=== PATIENT | female | born 1995 | race American Indian/Alaskan Native ===

== ENCOUNTER 2021-10-07 11:18 | Emergency (ER) | payer SELFPAY ==
[2021-10-07 11:24] VITALS: BP 142/86
[2021-10-07] MEDS ORDERED: SODIUM CHLORIDE 0.9% 1000 ML 1,000 ML IV ONE (11:25)
[2021-10-07] MEDS ORDERED: METOCLOPRAMIDE 10 MG/2 ML INJ IV ONE (11:25)
--- NOTE | 2021-10-07 11:31 | Emergency Department Report ---
ED General Adult HPI - General Chief complaint: Nausea/Vomiting/Diarrhea Stated complaint: NAUSEA VOMITING Time Seen by Provider: 10/07/21 11:24 Source: EMS Mode of arrival: Ambulatory Limitations: No Limitations - History of Present Illness Initial comments: Patient presents by ambulance secondary to nausea and vomiting. She has had an upset stomach for about 2 weeks now. Over the last day she has had ongoing vomiting cannot keep anything down. She feels dehydrated. There is diarrhea. There is some lower abdominal cramping. She has not had fevers or chills. She has not had cough or congestion. There is no history of recent travel or traum a. There have been no sick contacts. She states that she is . Her last menstrual cycle was in July. She is a . She has not had care up to this point. Severity scale (0 -10): 0 - Related Data Previous Rx's Medication Instructions Recorded Last Taken Type Metoclopramide [Reglan] 10 mg PO ACHS PRN #30 tablet 10/07/21 Unknown Rx Allergies Allergy/AdvReac Type Severity Reaction Status Date / Time No Known Allergies Allergy Verified 10/07/21 11:24 ED Review of Systems ROS: Stated complaint: NAUSEA VOMITING Other details as noted in HPI Comment: All other systems reviewed and negative Constitutional: denies: fever Eyes: denies: eye pain ENT: denies: throat pain Respiratory: denies: cough Cardiovascular: denies: chest pain Endocrine: denies: unexplained weight loss Gastrointestinal: as per HPI Genitourinary: denies: dysuria Musculoskeletal: denies: back pain Skin: denies: rash Neurological: denies: headache Hematological/Lymphatic: denies: easy bruising ED Past Medical Hx - Past Medical History Previous Medical History?: No - Family History Family history: no significant - Medications Home Medications: Home Medications Medication Instructions Recorded Confirmed Last Taken Type Metoclopramide [Reglan] 10 mg PO ACHS PRN #30 tablet 10/07/21 Unknown Rx ED Physical Exam - General Limitations: No Limitations, Other (Pulse ox noted and normal) General appearance: alert, in no apparent distress, obese, other (Nontoxic) - Head Head exam: Present: atraumatic, normocephalic - Eye Eye exam: Present: normal appearance, PERRL, EOMI. Absent: scleral icterus - ENT ENT exam: Present: mucous membranes dry, normal external ear exam - Neck Neck exam: Present: normal inspection. Absent: meningismus - Respiratory Respiratory exam: Present: normal lung sounds bilaterally. Absent: respiratory distress - Cardiovascular Cardiovascular Exam: Present: regular rate, normal rhythm - GI/Abdominal GI/Abdominal exam: Present: soft. Absent: distended, tenderness - Extremities Exam Extremities exam: Present: normal capillary refill - Back Exam Back exam: Absent: CVA tenderness (R), CVA tenderness (L) - Neurological Exam Neurological exam: Present: alert, oriented X3, CN II-XII intact, normal gait. Absent: motor sensory deficit - Psychiatric Psychiatric exam: Present: normal affect, normal mood - Skin Skin exam: Present: warm, dry ED Course Vital Signs 10/07/21 11:23 Temperature 98.7 F Pulse Rate 93 H Respiratory 16 Rate Blood Pressure 142/86 [Right] O2 Sat by Pulse 99 Oximetry - Reevaluation(s) Reevaluation #1: 10/07/21 11:28 EMS was met upon arrival. Labs and ultrasound ordered. Old records noted. Reevaluation #2: 10/07/21 12:38 Further IV fluids have been ordered. Oral potassium was ordered. Reevaluation #3: 10/07/21 13:10 Ultrasound and labs have been noted. UA is pending. ED Medical Decision Making - Lab Data Result diagrams: 10/07/21 11:37 10/07/21 11:37 - Medical Decision Making Patient presents with nausea and upset stomach in the setting of . She has an early but it is IUP. There is no ectopic. She clinically does not have evidence of hepatitis or pancreatitis. She does not appear to be septic or toxic. There is no evidence of intractable vomiting. There is no distention or tympany to suggest bowel obstruction. She does not have right lower quadrant tenderness to suggest appendicitis. She will be treated symptomatically and referred to [facility] for follow-up. We will add antibiotics depending on her urine. Critical Care Time: No Critical care attestation.: If time is entered above; I have spent that time in minutes in the direct care of this critically ill patient, excluding procedure time. ED Disposition Clinical Impression: Hypokalemia Nausea & vomiting Qualifiers: Vomiting type: unspecified Qualified Code(s): R11.2 - Nausea with vomiting, unspecified Qualifiers: Weeks of gestation: less than 8 weeks Qualified Code(s): Z3A.01 - Less than 8 weeks gestation of Disposition: 01 HOME / SELF CARE / HOMELESS Is pt being admited?: No Condition: Stable Instructions: Before Baby Comes Home, How a Baby Grows During , Eating Plan for Women, Nausea and Vomiting, Adult, Potassium Content of Foods, First Trimester of Additional Instructions: Have a bland diet. Drink water. Return for problems. Follow-up with your regu lar doctor or the referral physician as directed. Prescriptions: Metoclopramide [Reglan] 10 mg PO ACHS PRN #30 tablet PRN Reason: Nausea Referrals: PRIMARY CARE, [Referring] - 3-5 Days ELKE JUÁREZ MD [Staff Physician] - 3-5 Days JAE SAUL MD [Staff Physician] - 3-5 Days
[2021-10-07 12:02] LABS: Hematocrit 35.9 % (30.3-42.9); Hemoglobin 12.2 gm/dl (10.1-14.3); Mean Corpuscular HGB Conc 34 % (30-34); Mean Corpuscular Volume 76 fl (79-97); Platelet Count 417 K/mm3 (140-440); Red Blood Count 4.75 M/mm3 (3.65-5.03); Red Cell Distribution Width 17.3 % (13.2-15.2)
[2021-10-07 12:22] LABS: Alanine Aminotransferase 37 units/L (7-56); Albumin 4.2 g/dL (3.9-5); Blood Urea Nitrogen 8 mg/dL (7-17); Calcium 9.5 mg/dL (8.4-10.2); Hemolysis Index 11
[2021-10-07 12:24] LABS: BUN/Creatinine Ratio 16
[2021-10-07] MEDS ORDERED: LACTATED RINGERS 1,000 ML IV ONE (12:38)
[2021-10-07] MEDS ORDERED: POTASSIUM CHLORIDE ER 20 MEQ TAB PO ONE (12:38)
--- NOTE | 2021-10-07 13:07 | Ultrasound Report ---
ULTRASOUND OBSTETRIC INDICATION: lower abd pain. TECHNIQUE: Transabdominal and Transvaginal. COMPARISON: None available. FINDINGS: GESTATIONAL SAC: Well-defined oval shape and intrauterine in location. YOLK SAC: No significant abnormality. EMBRYO/FETUS: No significant abnormality. - [place]-Rump Length = 0.58 cm = 6 weeks, 3 day(s). - Heart Rate = 112 beats per minute. ADNEXA: No significant abnormality. FREE FLUID: None. ADDITIONAL FINDINGS: None. IMPRESSION: 1. Single, living intrauterine with estimated sonographic age of 6 weeks, 3 day(s). 2. No acute findings. Signer Name: Riley Rock MD Signed: 10/07/2021 1:02 PM Workstation Name: [id number]
--- NOTE | 2021-10-07 13:08 | Ultrasound Report ---
ULTRASOUND OBSTETRIC INDICATION: lower abd pain. TECHNIQUE: Transabdominal and Transvaginal. COMPARISON: None available. FINDINGS: GESTATIONAL SAC: Well-defined oval shape and intrauterine in location. YOLK SAC: No significant abnormality. EMBRYO/FETUS: No significant abnormality. - [place]-Rump Length = 0.58 cm = 6 weeks, 3 day(s). - Heart Rate = 112 beats per minute. ADNEXA: No significant abnormality. FREE FLUID: None. ADDITIONAL FINDINGS: None. IMPRESSION: 1. Single, living intrauterine with estimated sonographic age of 6 weeks, 3 day(s). 2. No acute findings. Signer Name: Riley Rock MD Signed: 10/07/2021 1:02 PM Workstation Name: [id number]
[2021-10-07] MEDS ORDERED: ONDANSETRON 4 MG/2 ML INJ IV ONE (14:06)
[2021-10-07 14:34] LABS: Bilirubin,Urine Negative (Negative); Blood,Urine Negative (Negative); Color,Urine Colorless (Yellow)
[2021-10-07 14:46] LABS: Mucus,Urine 1+ /HPF; RBC,Urine < 1.0 /HPF (0.0-6.0)
== END 2021-10-07 15:30 | disposition home or self-care (01) ==
LOC: EDSEX → ED 11:18
DX: O21.9 Vomiting of pregnancy, unspecified (principal); E87.6 Hypokalemia; Z3A.01 Less than 8 weeks gestation of pregnancy
CPT/HCPCS: 36415; 76801; 76817; 80053; 81001; 84702; 85027; 96361; 96374; 96375; 99284; J2405; J2765; J7030; J7120; Q0162

== ENCOUNTER 2021-12-03 05:15 | Emergency (ER) | payer OTHER ==
[2021-12-03] MEDS ORDERED: SODIUM CHLORIDE 0.9% 1000 ML 1,000 ML IV ONE (05:42)
[2021-12-03] MEDS ORDERED: ACETAMINOPHEN 500 MG TAB PO ONE (05:43)
[2021-12-03] MEDS ORDERED: ONDANSETRON 4 MG/2 ML INJ IV ONE ×2 (05:43→14:04)
[2021-12-03 05:54] LABS: Basophils % (Auto) 0.5 % (0.0-1.8); Eosinophils % (Auto) 0.1 % (0.0-4.3); Hematocrit 34.5 % (30.3-42.9); Hemoglobin 11.5 gm/dl (10.1-14.3); Lymphocytes # (Auto) 1.8 K/mm3 (1.2-5.4); Lymphocytes % (Auto) 17.5 % (13.4-35.0); Mean Corpuscular HGB Conc 33 % (30-34); Mean Corpuscular Volume 79 fl (79-97); Monocytes # (Auto) 0.8 K/mm3 (0.0-0.8); Monocytes % (Auto) 7.7 % (0.0-7.3); Platelet Count 347 K/mm3 (140-440); Red Blood Count 4.38 M/mm3 (3.65-5.03); Red Cell Distribution Width 18.2 % (13.2-15.2)
[2021-12-03 06:02] LABS: Bilirubin,Urine NEG (Negative); Blood,Urine NEG (Negative); Color,Urine Amber (Yellow)
[2021-12-03 06:04] LABS: RBC,Urine < 1.0 /HPF (0.0-6.0); WBC,Urine < 1.0 /HPF (0.0-6.0)
[2021-12-03 06:17] LABS: Alanine Aminotransferase 212 units/L (7-56); Blood Urea Nitrogen 5 mg/dL (7-17); Calcium 9.2 mg/dL (8.4-10.2); Hemolysis Index 2
[2021-12-03 06:18] LABS: BUN/Creatinine Ratio 10
[2021-12-03 08:32] LABS: HCG,Quantitative 26945 mIU/mL (0-4)
--- NOTE | 2021-12-03 08:49 | Ultrasound Report ---
ULTRASOUND ABDOMEN, COMPLETE INDICATION: elevated LFT. COMPARISON: No relevant prior imaging study available. FINDINGS: Pancreas: The visualized proximal pancreas is unremarkable. The tail is partially obscured. Abdominal Aorta: No significant abnormality. IVC: No significant abnormality. Liver: The liver measures 15.8 cm in length. No significant abnormality. Normal hepatopedal blood fl ow in the main portal vein. Gallbladder: There is a large amount of sludge throughout the gallbladder. No evidence for shadowing stones, abnormal gallbladder wall thickening or pericholecystic fluid.. Bile ducts: The intrahepatic biliary ducts are slightly prominent but the common bile duct is nondila kalina. Common bile duct measures 4.4 mm. Kidneys: Right: 11.1 cm in length. No significant abnormality. Left: 9.5 cm in length. No signifi cant abnormality. Spleen: No significant abnormality. 10.3 cm in length. Free fluid: None. Additional Findings: None. IMPRESSION: The gallbladder is filled with sludge. No shadowing gallstones or signs of acute cholecystitis. There may be minimal intrahepatic biliary duct prominence but no evidence for dilated common bile duct whi ch measures 4.4 mm. Signer Name: Sammy Vasquez Jr, MD Signed: 12/03/2021 8:44 AM Workstation Name: [id number]
--- NOTE | 2021-12-03 08:52 | Ultrasound Report ---
ULTRASOUND OBSTETRIC COMPLETE INDICATION / CLINICAL INFORMATION: preg, abdominal pain. Clinical Gestational Age (GA) in weeks.days: 13.3 TECHNIQUE: Transabdominal. COMPARISON: 10/07/2021 FINDINGS: NUMBER: Single PRESENTATION: breech PLACENTA: Posterior, grade 0 and free of the os. MATERNAL ADNEXA: No significant abnormality. AMNIOTIC FLUID VOLUME: Within normal limits subjectively. MANOJ was not measured. ANATOMY: anatomical survey was not performed. MEASUREMENTS: - Biparietal Diameter = 3.0 cm = 15.3 weeks.days - Head Circumference = 10.7 cm = 15.1 weeks.days - Abdominal Circumference = 9.7 cm = 15.6 weeks.days - Femur Length = 2.0 cm = 16.0 weeks.days - Estimated Weight (in grams, if calculated): Not calculated - Heart Rate (beats per minute): 153 ADDITIONAL FINDINGS: The cervix is closed and measures 2.6 cm in length. PERCENTILE ESTIMATED WEIGHT (if calculated): Not calculated. AVERAGE ULTRASOUND AGE (AUA) in weeks.days = 15.4 IMPRESSION: 1. Single intrauterine with AUA of 15.4 weeks.days 2. No acute abnormality is appreciated. Signer Name: Sammy Vasquez Jr, MD Signed: 12/03/2021 8:47 AM Workstation Name: [id number]
[2021-12-03] MEDS ORDERED: MORPHINE 4 MG/1 ML INJ IV ONE (09:40)
--- NOTE | 2021-12-03 09:45 | Emergency Department Report ---
ED General Adult HPI - General Chief complaint: Abdominal Pain Stated complaint: ABD PAIN Time Seen by Provider: 12/03/21 07:16 Source: patient Mode of arrival: Ambulatory Limitations: No Limitations - History of Present Illness Initial comments: Patient presents with complaints of bilateral lower abdominal pain, sharp, non radiating, "15"/10, not worsened or relieved by anything. Endorses nausea, non bloody, non bilious vomiting. Last BM was 3 days ago and formed but scant. Denies flatulence. Denies dysuria, frequency, urgency, vaginal bleeding, di scharge. Patient is 15 weeks . Severity scale (0 -10): 10 - Related Data Previous Rx's Medication Instructions Recorded Last Taken Type Metoclopramide [Reglan] 10 mg PO ACHS PRN #30 tablet 10/07/21 Unknown Rx Metoclopramide [Reglan TAB] 1 tab PO Q6H PRN #30 tab 12/03/21 Unknown Rx polyethylene glycoL 3350 [Miralax 17 gm PO QDAY PRN 7 Days #7 packet 12/03/21 Unknown Rx 3350] Allergies Allergy/AdvReac Type Severity Reaction Status Date / Time No Known Allergies Allergy Verified 12/03/21 05:34 ED Review of Systems ROS: Stated complaint: ABD PAIN Other details as noted in HPI Comment: All other systems reviewed and negative Constitutional: denies: chills, fever ED Past Medical Hx - Past Medical History Previous Medical History?: No - Surgical History Past Surgical History?: No - Social History Smoking Status: Never Smoker Substance Use Type: None - Medications Home Medications: Home Medications Medication Instructions Recorded Confirmed Last Taken Type Metoclopramide [Reglan] 10 mg PO ACHS PRN #30 tablet 10/07/21 Unknown Rx Metoclopramide [Reglan TAB] 1 tab PO Q6H PRN #30 tab 12/03/21 Unknown Rx polyethylene glycoL 3350 [Miralax 17 gm PO QDAY PRN 7 Days #7 packet 12/03/21 Unknown Rx 3350] ED Physical Exam - General Limitations: No Limitations General appearance: alert, other (writhing in pain) - Head Head exam: Present: atraumatic, normocephalic - Eye Eye exam: Present: PERRL, EOMI - ENT ENT exam: Present: mucous membranes dry, other (airway patent) - Neck Neck exam: Present: other (supple; no JVD) - Respiratory Respiratory exam: Present: other (good air entry, nml I:E, CTAB, no use of ALYSSIA) - Cardiovascular Cardiovascular Exam: Present: regular rate. Absent: rubs, gallop - GI/Abdominal GI/Abdominal exam: Present: other (distended vs obese; tender to palpation diffusely but mainly in RLQ; rebound tenderness present; no involuntary guarding) - Extremities Exam Extremities exam: Present: full ROM. Absent: tenderness - Back Exam Back exam: Present: full ROM. Absent: CVA tenderness (R), CVA tenderness (L) - Neurological Exam Neurological exam: Present: alert, oriented X3, CN II-XII intact. Absent: motor sensory deficit - Skin Skin exam: Present: warm. Absent: rash ED Course Vital Signs 12/03/21 12/03/21 05:31 05:52 Temperature 97.9 F Pulse Rate 114 H Respiratory 20 18 Rate Blood Pressure 117/50 [Left] O2 Sat by Pulse 97 Oximetry ED Medical Decision Making - Lab Data Result diagrams: 12/03/21 05:43 12/03/21 05:43 Laboratory Tests 12/03/21 12/03/21 12/03/21 05:43 05:43 05:43 WBC 10.5 RBC 4.38 Hgb 11.5 Hct 34.5 MCV 79 MCH 26 L MCHC 33 RDW 18.2 H Plt Count 347 Lymph % (Auto) 17.5 [place] % (Auto) 7.7 H Eos % (Auto) 0.1 Baso % (Auto) 0.5 Lymph # (Auto) 1.8 [place] # (Auto) 0.8 Eos # (Auto) 0.0 Baso # (Auto) 0.0 Seg Neutrophils % 74.2 H Seg Neutrophils # 7.8 H PT INR APTT Sodium 139 Potassium 3.4 L Chloride 104.2 Carbon Dioxide 17 L Anion Gap 21 BUN 5 L Creatinine 0.5 L Estimated GFR > 60 BUN/Creatinine Ratio 10 Glucose 94 Calcium 9.2 Total Bilirubin 1.40 H AST 150 H ALT 212 H Alkaline Phosphatase 48 Total Protein 7.0 Albumin 4.0 Albumin/Globulin Ratio 1.3 Lipase 10 L HCG, Quant Urine Color Urine Turbidity Urine pH Ur Specific [place] Urine Protein Urine Glucose (UA) Urine Ketones Urine Blood Urine Nitrite Urine Bilirubin Urine Urobilinogen Ur Leukocyte Esterase Urine WBC (Auto) Urine RBC (Auto) Acetaminophen Hepatitis A IgM Ab Hep Bs Antigen Hep B Core IgM Ab Hepatitis C Antibody 12/03/21 12/03/21 12/03/21 05:55 07:44 09:26 WBC RBC Hgb Hct MCV MCH MCHC RDW Plt Count Lymph % (Auto) [place] % (Auto) Eos % (Auto) Baso % (Auto) Lymph # (Auto) [place] # (Auto) Eos # (Auto) Baso # (Auto) Seg Neutrophils % Seg Neutrophils # PT 14.6 INR 1.03 APTT 23.0 L Sodium Potassium Chloride Carbon Dioxide Anion Gap BUN Creatinine Estimated GFR BUN/Creatinine Ratio Glucose Calcium Total Bilirubin AST ALT Alkaline Phosphatase Total Protein Albumin Albumin/Globulin Ratio Lipase HCG, Quant 18395 H Urine Color [place] Urine Turbidity Clear Urine pH 8.0 H Ur Specific [place] 1.016 Urine Protein 30 mg/dl Urine Glucose (UA) Neg Urine Ketones 80 Urine Blood Neg Urine Nitrite Neg Urine Bilirubin Neg Urine Urobilinogen 4.0 Ur Leukocyte Esterase Sm Urine WBC (Auto) < 1.0 Urine RBC (Auto) < 1.0 Acetaminophen Hepatitis A IgM Ab Non-reactive Hep Bs Antigen Non-reactive Hep B Core IgM Ab Non-reactive Hepatitis C Antibody Non-reactive 12/03/21 09:26 WBC RBC Hgb Hct MCV MCH MCHC RDW Plt Count Lymph % (Auto) [place] % (Auto) Eos % (Auto) Baso % (Auto) Lymph # (Auto) [place] # (Auto) Eos # (Auto) Baso # (Auto) Seg Neutrophils % Seg Neutrophils # PT INR APTT Sodium Potassium Chloride Carbon Dioxide Anion Gap BUN Creatinine Estimated GFR BUN/Creatinine Ratio Glucose Calcium Total Bilirubin AST ALT Alkaline Phosphatase Total Protein Albumin Albumin/Globulin Ratio Lipase HCG, Quant Urine Color Urine Turbidity Urine pH Ur Specific [place] Urine Protein Urine Glucose (UA) Urine Ketones Urine Blood Urine Nitrite Urine Bilirubin Urine Urobilinogen Ur Leukocyte Esterase Urine WBC (Auto) Urine RBC (Auto) Acetaminophen 5.0 L Hepatitis A IgM Ab Hep Bs Antigen Hep B Core IgM Ab Hepatitis C Antibody Pelvic US: single IUP 15wks and 4 days; cervix closed 2.6 cm; no free fluid US abd: gall bladder sludge without cholecystitis; no CBD dilatation MRI abd: no acute process - Medical Decision Making likely 2/2 constipation. Cholecystitis, appendicitis, UTI, ectopic ruled out. Mild transaminitis incidentally noted, but coags wnl, no protein in urine and no signs of hemolysis or low platelets. Received morhine 4 mg IV x 1, zofran 4 mg IV x 1. Abd pain resolved. abd non tender. HR 72 Critical care attestation.: If time is entered above; I have spent that time in minutes in the direct care of this critically ill patient, excluding procedure time. ED Disposition Clinical Impression: Abdominal pain, Constipation Disposition: HOME / SELF CARE / HOMELESS Is pt being admited?: No Does the pt Need Aspirin: No Condition: Stable Instructions: Abdominal Pain During , [id number], Constipation, Adult, Abdominal Pain (ED) Additional Instructions: Follow up with your differential tester within 2 - 4 days. Return to the ER if your symptoms worsen. Prescriptions: polyethylene glycoL 3350 [Miralax 3350] 17 gm PO QDAY PRN 7 Days #7 packet PRN Reason: Constipation Metoclopramide [Reglan TAB] 1 tab PO Q6H PRN #30 tab PRN Reason: Nausea And Vomiting Referrals: PRIMARY CARE, [Primary Care Provider] - 3-5 Days Time of Disposition: 14:18
[2021-12-03 10:21] LABS: INR 1.03 (0.87-1.13)
[2021-12-03 12:22] LABS: Hepatitis B Surface Antigen Non-Reactive (Negative); Hepatitis C Virus Antibody Non-Reactive (NonReactive)
--- NOTE | 2021-12-03 13:44 | Magnetic Resonance Report ---
MRI ABDOMEN WITHOUT CONTRAST INDICATION / CLINICAL INFORMATION: abdominal pain with peritoneal signs; . TECHNIQUE: Multiplanar, multisequence series were obtained through the abdomen. COMPARISON: Abdominal ultrasound same day FINDINGS: LIVER: No significant abnormality. GALLBLADDER: The gallbladder is filled with sludge. There is no gallbladder wall thickening or perich olecystic inflammation to suggest superimposed cholecystitis. BILE DUCTS: No significant abnormality. PANCREAS: No significant abnormality. SPLEEN: No significant abnormality. ADRENALS: No significant abnormality. RIGHT KIDNEY AND URETER: No significant abnormality. LEFT KIDNEY AND URETER: No significant abnormality. STOMACH AND VISUALIZED BOWEL: No significant abnormality. The appendix is not visualized in the field -of-view of this examination of the abdomen. PERITONEUM: No free fluid. No free air. No fluid collection. LYMPH NODES: No significant adenopathy. AORTA and ARTERIES: No significant abnormality. IVC and VEINS: No significant abnormality. ADDITIONAL FINDINGS: The gravid uterus is partially visualized and incompletely assessed on this exam ination. SKELETAL SYSTEM: No significant abnormality. IMPRESSION: 1. Gallbladder sludge. There is no gallbladder wall thickening or pericholecystic inflammation to sug gest superimposed cholecystitis. 2. Otherwise, no acute process identified within the visualized abdomen. Signer Name: Pam Chinchilla MD Signed: 12/03/2021 1:40 PM Workstation Name: [id number]
[2021-12-03 15:11] VITALS: BP 138/78
== END 2021-12-03 15:10 | disposition home or self-care (01) ==
LOC: ED 05:15
DX: O26.892 Other specified pregnancy related conditions, second trimester (principal); R10.30 Lower abdominal pain, unspecified; O99.612 Diseases of the digestive system complicating pregnancy, second trimester; Z3A.15 15 weeks gestation of pregnancy
CPT/HCPCS: 36415; 74181; 76700; 76805; 80053; 80074; 81001; 83690; 84702; 85025; 85610; 85730; 96361; 96374; 96375; 96376; 99284; J2270; J2405; J7030; 80320; G0480